=== PATIENT | female | born 1935 | race Caucasian/White ===

== ENCOUNTER → 2020-04-24 | Outpatient (CLI) | payer MEDICARE ==
[~2020-04-24] MED LIST: AZIT250 PO; Halcion0.25 MG PO; K-Dur10 MEQ; LEVO750 PO; METO100ER PO; METOPROLOL SUCC25 MG PO; SPIRONOLACTONE25 MG PO; Simvastatin40 MG PO; TORSE20 PO
[2020-04-24 14:11] LABS: BASOPHILS ABSOLUTE AUTO 0.02 K/mm3 (0.00-0.23); BASOPHILS PERCENT AUTO 0 % (0-2); EOSINOPHILS ABSOLUTE AUTO 0.05 K/mm3 (0.00-0.68); EOSINOPHILS PERCENT AUTO 1 % (0-6); Hemoglobin 12.4 g/dL (11.5-16.0); IMMATURE GRAN ABSOLUTE AUTO 0.02 K/mm3 (0.00-0.10); IMMATURE GRAN PERCENT AUTO 0 % (0-1); LYMPHOCYTES ABSOLUTE AUTO 0.71 K/mm3 (0.84-5.20); LYMPHOCYTES PERCENT AUTO 9 % (21-46); MONOCYTES ABSOLUTE AUTO 0.43 K/mm3 (0.16-1.47); MONOCYTES PERCENT AUTO 5 % (4-13); Mean Corpuscular HGB 32.2 pg (26.0-34.0); Mean Corpuscular HGB Conc 33.5 g/dL (31.5-36.5); Mean Corpuscular Volume 96 fL (80-100); Mean Platelet Volume 11.6 fL (9.1-12.4); NEUTROPHILS ABSOLUTE AUTO 7.14 K/mm3 (1.96-9.15); NEUTROPHILS PERCENT AUTO 85 % (41-73); Platelet Count 181 K/mm3 (150-400); RDW Coefficient Variation 15.7 % (11.7-14.2); RDW Standard Deviation 53.8 fL (35.1-46.3); Red Blood Cell Count 3.85 M/mm3 (3.80-5.20); White Blood Cell Count 8.37 K/mm3 (4.00-11.30)
[2020-04-24 14:21] LABS: Alanine Aminotransfer (ALT/SGP 21 U/L (12-78); Albumin/Globulin Ratio 0.9 (0.8-1.8); Alk Phos 74 U/L (40-126); Anion Gap 5 mmol/L (6-16); Aspartate Aminotrans (AST/SGOT 25 U/L (12-37); Blood Urea Nitrogen 18 mg/dL (8-24); Bun/Creatinine Ratio 22.5 (12.0-20.0); CO2, Blood 32 mmol/L (21-32); Calcium, Blood 8.8 mg/dL (8.5-10.1); Chloride, Blood 107 mmol/L (98-108); Globulin, Blood 3.2 g/dL (2.2-4.0); Glomerular Filtration Rate >60 (60-); Glucose, Blood 110 mg/dL (70-99); Potassium, Blood 3.3 mmol/L (3.5-5.5); Sodium, Blood 144 mmol/L (136-145); Total Protein, Blood 6.2 g/dL (6.4-8.2)
[2020-04-24 14:55] LABS: Troponin I 0.046 ng/mL (0.000-0.040)
== END | disposition home or self-care (01) ==
LOC: LAB SHORT 14:07 → LAB EV 14:07
PROVIDERS: Physician Assistant Medical
DX: R06.00 Dyspnea, unspecified (principal); R60.9 Edema, unspecified
CPT/HCPCS: 80053; 83880; 84484; 85025

== ENCOUNTER 2020-04-29 07:24 | Inpatient (IN) | payer MEDICARE ==
[~2020-04-29] VITALS: Ht 152.4 cm; Wt 69.1 kg
[2020-04-29 07:57] LABS: Hematocrit 44.9 % (33.0-51.0); Mean Corpuscular HGB 31.8 pg (26.0-34.0); Mean Corpuscular HGB Conc 33.4 g/dL (31.5-36.5); Mean Corpuscular Volume 95 fL (80-100); Mean Platelet Volume 12.5 fL (9.1-12.4); Platelet Count 180 K/mm3 (150-400); RDW Coefficient Variation 15.2 % (11.7-14.2); RDW Standard Deviation 53.1 fL (35.1-46.3); Red Blood Cell Count 4.71 M/mm3 (3.80-5.20); White Blood Cell Count 15.24 K/mm3 (4.00-11.30)
[2020-04-29 08:25] LABS: Albumin, Blood 2.2 g/dL (3.4-5.0); Albumin/Globulin Ratio 0.6 (0.8-1.8); BAND PERCENT MAN 10 % (0-8); BASOPHILS PERCENT MAN 0 % (0-2); Bilirubin, Total 1.6 mg/dL (0.1-1.0); Calcium, Blood 9.4 mg/dL (8.5-10.1); Creatinine, Blood 1.77 mg/dL (0.40-1.00); EOSINOPHILS PERCENT MAN 0 % (0-6); Globulin, Blood 3.5 g/dL (2.2-4.0); LYMPHOCYTES ABSOLUTE MAN 0.45 K/mm3 (0.84-5.20); LYMPHOCYTES PERCENT MAN 3 % (21-46); MONOCYTES PERCENT MAN 2 % (4-13); NEUTROPHILS ABSOLUTE MAN 14.47 K/mm3 (1.96-9.15); Potassium, Blood 3.8 mmol/L (3.5-5.5); SEG NEUTROPHILS PERCENT MAN 85 % (41-73); TOTAL CELLS COUNTED 100; Total Protein, Blood 5.7 g/dL (6.4-8.2)
[2020-04-29 08:43] LABS: Source, Urine Catheter
[2020-04-29 08:51] LABS: Blood, Urine 3+ (Neg); Glucose Qualitative, Urine 1+ (Neg); Ketones, Urine Neg (Neg); Leukocyte Esterase, Urine 1+ (Neg); Nitrite, Urine Neg (Neg); Protein, Urine 2+ (Neg); Specific Gravity, Urine 1.015 (1.003-1.022); Urobilinogen, Urine 1+ (Normal)
[2020-04-29 09:02] LABS: Bilirubin, Urine 1+ (Neg)
[2020-04-29 09:04] LABS: Color, Urine Yellow (P-Yellow)
[2020-04-29 09:05] LABS: Appearance, Urine Hazy (Clear)
[2020-04-29 09:14] LABS: Bacteria Few /hpf; Squamous Epithelial Cells Rare /hpf (Few)
[2020-04-29 09:15] LABS: Amorphous Mod (0-Heavy); Transitional Epithelial Cells Few /hpf (0-Rare)
[2020-04-29 09:20] LABS: Other Crystals Rare /hpf
[2020-04-29 09:22] LABS: Renal Epithelial Rare /hpf (0-Rare)
--- NOTE | 2020-04-29 10:52 | NUR ---
PT TRANSPORTED TO [facility]. PT AWAKE, SLOW TO RESPOND BUT ANSWERS APPROPRIATLY.
--- NOTE | 2020-04-29 11:19 | NUR ---
TOOK OVER PATIENT CARE AFTER REPORT WAS RECEIVED. PATIENT'S LUNGS SOUNDS WERE CLEAR, BUT SALLOW.
--- NOTE | 2020-04-29 18:23 | NUR ---
SHIFT SUMMARY PT ARRIVED TO ICU AT 1450 THIS AFTERNOON FROM PACU. PT DROWSY, WAKES TO VOICE, BUT FALLS QUICKLY BACK ASLEEP AND MOSTLY JUST RESPONDS TO QUESTIONS WHILE KEEPING HER EYES CLOSED. PT HAS SORE ON HER BOTTOM WITH 2 SMALL OPEN AREAS. MEPILEX DRESSING PLACED. PT'S BP HAS BEEN BORDERLINE WITH SBP 80-90 AND MAP 50-60S. DR. BOUCHER INFORMED AND ORDER RECEIVED FOR 1LNS. PT'S BP STILL BORDERLINE AFTER BOLUS. DR. DIALLO CONSULTED AND SAW PT. ORDERS FOR PICC LINE, BEING PLACED NOW, AND PRESSORS IF BP CONTINUES TO BE AN ISSUE. PT'S DANNIELLE AT THE BEDSIDE AND WAS UPDATED BY DR. BOUCHER, DR. DIALLO AND NURSING STAFF. PT'S MIDLINE INCISION IS C/D/I WITH SMALL NICKEL SIZE SPOT OF RED DRAINAGE. ALENA DRAIN WITH SS DRAINAGE. CPMTOMIOMG TP ,PMOTPR/
--- NOTE | 2020-04-29 20:00 | NUR ---
ASSUMED CARE: PT SLEEPING. LUNG SOUNDS CLEAR ON 3L NC. SBP SOFT AT TTIMES.POSS HEART FAILURE THEREFORE LR AT 100MLS/HR DC'S. IN SR. NGT TO STUART. POTTER IN PLACE DRAINING YELLOW URINE. PT HAS A MIDLINE ABD INCISION WITH NATHAN DRESSING AND WOUND VAC. PT ALSO HAS LEIDY DRAIN DRAINING YELLOW FLUID. PT HAS A L/R AC AND PICC TO MONICA. WILL CONTINUE TO MONITOR
[2020-04-30 04:17] LABS: Hematocrit 39.9 % (33.0-51.0); Hemoglobin 13.2 g/dL (11.5-16.0); Mean Corpuscular HGB 32.4 pg (26.0-34.0); Mean Corpuscular HGB Conc 33.1 g/dL (31.5-36.5); Mean Corpuscular Volume 98 fL (80-100); Mean Platelet Volume 12.6 fL (9.1-12.4); Platelet Count 179 K/mm3 (150-400); RDW Coefficient Variation 15.6 % (11.7-14.2); RDW Standard Deviation 55.8 fL (35.1-46.3); Red Blood Cell Count 4.07 M/mm3 (3.80-5.20); White Blood Cell Count 13.83 K/mm3 (4.00-11.30)
[2020-04-30 04:34] LABS: Albumin, Blood 1.8 g/dL (3.4-5.0); Albumin/Globulin Ratio 0.6 (0.8-1.8); Bilirubin, Total 0.9 mg/dL (0.1-1.0); Bun/Creatinine Ratio 36.2 (12.0-20.0); Creatinine, Blood 1.3 mg/dL (0.40-1.00); Globulin, Blood 3.2 g/dL (2.2-4.0); Potassium, Blood 3.3 mmol/L (3.5-5.5)
--- NOTE | 2020-04-30 05:46 | NUR ---
SHIFT SUMMARY: PT SLEPT MAJORITY OF THE NIGHT. LEVOPHED WAS STARTED D/T PT SBP IN THE 70-80. SBP CURRENTLY IN THE 110S. PT HAD A COUPLE EPISODES OF DESAT SO O2 WAS TURNED UP TO 4L NC.SPO2 98%. OTHERWISE NO ACUTE CHANGES.
[2020-04-30 05:48] LABS: BAND PERCENT MAN 14 % (0-8); BASOPHILS ABSOLUTE MAN 0.13 K/mm3 (0.00-0.23); BASOPHILS PERCENT MAN 1 % (0-2); EOSINOPHILS PERCENT MAN 0 % (0-6); LYMPHOCYTES ABSOLUTE MAN 0.41 K/mm3 (0.84-5.20); LYMPHOCYTES PERCENT MAN 3 % (21-46); MONOCYTES ABSOLUTE MAN 0.55 K/mm3 (0.16-1.47); MONOCYTES PERCENT MAN 4 % (4-13); NEUTROPHILS ABSOLUTE MAN 12.72 K/mm3 (1.96-9.15); SEG NEUTROPHILS PERCENT MAN 78 % (41-73); TOTAL CELLS COUNTED 100
--- NOTE | 2020-04-30 08:17 | NUR ---
ASSUMED CARE: REPORT RECEIVED FROM STEPHANE Land RN. ASSUMED CARE OF THIS PT AT APPROX 0700. ON ASSESSMENT, PT IS RESTING QUIETLY. SHE AWAKENS TO VERBAL STIMULUS & STS HAVING NO PAIN. LEVOPHED INFUSING FOR HYPOTENSION, TITRATION IN FLOWSHEET. MIDLINE INCISION W/ NATHAN WOUND VAC, DRESSING CDI. RLQ ALENA DRAIN W/ GAUZE DRESSING INTACT, DRAINING YELLOW/ SS FLUID. WILL CONTINUE TO MONITOR & UPDATE NEEDED.
--- NOTE | 2020-04-30 10:49 | NUR ---
DR SYLVESTER: PROVIDER AT BEDSIDE APPROX 1035. HE HAS ASSESSED THE PT & STS THAT THE YELLOW/ SS DRAINAGE IN THE ALENA DRAIN IS WNL. CURRENT POC IS TO CONTINUE W/ NGT IN PLACE TO LIS, ALENA & NATHAN DRAINS TO STAY IN PLACE. ONCE PT IS MORE STABLE A WHOLE & OFF OF VASOPRESSORS, AN UPPER GI STUDY MAY BE COMPLETED TO EVAL IF SURGICAL REPAIR OF PERF REMAINS STABLE. NO CHANGES AT THIS TIME.
--- NOTE | 2020-04-30 12:00 | NUR ---
DR BOUCHER: PROVIDER AT BEDSIDE TO EVAL PT. HE STS NO CHANGES AT THIS TIME & CONTINUE POC PER SURGERY & HAND NAILER SERVICES CONSULTED.
--- NOTE | 2020-04-30 16:20 | NUR ---
DR BLOOM: PROVIDER AT BEDSIDE TO EVAL PT. ORDERS PLACED FOR 500 ML LR BOLUS TO SEE IF BP & URINE OUTPUT INCREASE/IMPROVE. BASED ON PT's KIND OF HF, LEVOPHED MAY BE COUNTERPRODUCTIVE & PHENYLEPHRINE HAS BEEN ORDERED INSTEAD.
--- NOTE | 2020-04-30 18:55 | NUR ---
SHIFT SUMMARY: NO ACUTE CHANGES SINCE PRIOR UPDATES. PT REMAINS A&O, PLEASANT & COOPERATIVE. SHE DENIES PAIN EXCEPT DIRECTLY AFTER TRANSFER TO CHAIR, MEDS PER EMAR. SHE IS RESTING QUIETLY AT THIS TIME. ASSESSMENT UNCHANGED. PT REMAINS ON 4L NC FOR DESATS WHILE SLEEPING, SATS > 92% ON AVG. PT IS TOLERATING BEING OFF WELL, MAP 60-65 ON AVG. PHENYLEPHRINE IN ROOM IF NEEDED FOR HYPOTENSION. Q2H REPOSITIONING TO MAINTAIN SKIN INTEGRITY. ALL SURGICAL SITES & DRESSINGS REMAIN WNL. WILL CONTINUE TO MONITOR & REPORT OFF TO ONCOMING RN.
--- NOTE | 2020-04-30 19:53 | NUR ---
ASSUMED CARE: PT ASLEEP IN CHAIR. IN SR. LUNG SOUDNS CLEAR, SPO2 >90% ON 4LNC. NGT IN PLACE TO LIS. NATHAN DRESSING C/D/I. LEIDY DRAINING OUTPUT IS A YELLOWISH COLOR. PICC TO MONICA. PIVS REMAIN IN R/L AC-PATENT/SL. LEVOPHEDD/C'D, PHENYLEPHRINE ON STANDBY IF NEEDED. SBP'S ARE SOFT BUT MAPS HAVE >60. NS AT TKO.
[2020-05-01 03:28] LABS: BASOPHILS ABSOLUTE AUTO 0.02 K/mm3 (0.00-0.23); BASOPHILS PERCENT AUTO 0 % (0-2); EOSINOPHILS ABSOLUTE AUTO 0.01 K/mm3 (0.00-0.68); EOSINOPHILS PERCENT AUTO 0 % (0-6); Hematocrit 40.3 % (33.0-51.0); Hemoglobin 12.4 g/dL (11.5-16.0); IMMATURE GRAN ABSOLUTE AUTO 0.09 K/mm3 (0.00-0.10); IMMATURE GRAN PERCENT AUTO 1 % (0-1); LYMPHOCYTES ABSOLUTE AUTO 0.58 K/mm3 (0.84-5.20); LYMPHOCYTES PERCENT AUTO 5 % (21-46); MONOCYTES ABSOLUTE AUTO 0.53 K/mm3 (0.16-1.47); MONOCYTES PERCENT AUTO 5 % (4-13); Mean Corpuscular HGB 30.5 pg (26.0-34.0); Mean Corpuscular HGB Conc 30.8 g/dL (31.5-36.5); Mean Corpuscular Volume 99 fL (80-100); Mean Platelet Volume 11.8 fL (9.1-12.4); NEUTROPHILS ABSOLUTE AUTO 10.47 K/mm3 (1.96-9.15); NEUTROPHILS PERCENT AUTO 89 % (41-73); Platelet Count 118 K/mm3 (150-400); RDW Coefficient Variation 15.5 % (11.7-14.2); RDW Standard Deviation 56.9 fL (35.1-46.3); Red Blood Cell Count 4.07 M/mm3 (3.80-5.20)
[2020-05-01 03:45] LABS: Albumin, Blood 1.9 g/dL (3.4-5.0); Albumin/Globulin Ratio 0.6 (0.8-1.8); Bilirubin, Total 0.7 mg/dL (0.1-1.0); Bun/Creatinine Ratio 40.8 (12.0-20.0); Calcium, Blood 8.3 mg/dL (8.5-10.1); Creatinine, Blood 1.03 mg/dL (0.40-1.00); Globulin, Blood 3.3 g/dL (2.2-4.0); Magnesium, Blood 2.2 mg/dL (1.6-2.4); Potassium, Blood 3.4 mmol/L (3.5-5.5); Total Protein, Blood 5.2 g/dL (6.4-8.2)
--- NOTE | 2020-05-01 05:49 | NUR ---
SHIFT SUMMARY: NO ACUTE CHANGES T/O NIGHT. PT DID COMPLAIN OF PAIN. VSS. NO PRESSERS NEEDED. WILL PASS REPORT TO ONCOMING
--- NOTE | 2020-05-01 12:55 | NUR ---
REASSESSMENT PT HAS BEEN CONVERSING A LITTLE MORE THAN SHE INTIALLY WAS THIS MORNING. SHE KNOWS SHE IS IN THE HOSPITAL BUT CAN'T GIVE SPECIFICS TO WHERE OR WHY. SHE COMPLAINS OF PAIN ALL OVER AND SAYS THE FENTANYL ONLY GIVES A LITTLE RELIEF. LUNGS ARE CLEAR, BUT DIM. ENCOURAGING PT TO TAKE DEEPER BREATHS BUT SHE DOESN'T REMEMBER TO DO IT ONCE THERE ISN'T ANYONE IN THE ROOM. SR, BP STABLE, OFF OF PRESSORS. DR. SYLVESTER CAME BY AND OK'D PT TO HAVE PO METOPROLOL THROUGH THE NGT AND TO START SQ HEPARIN. RARE BOWEL TONES HEARD THIS AFTERNOON. NG GETTING SCANT AMT OF BILE LOOKING FLUID OUT. PT'S DANNIELLE CALLED AND PROVIDED WITH UPDATE. PT'S SON AT THE BEDSIDE. CONTINUING TO MONITOR.
--- NOTE | 2020-05-01 17:23 | NUR ---
SHIFT SUMMARY PT HAS BEEN RESTING ON AND OFF THROUGHOUT THE DAY. SHE WAS MORE INTERACTIVE AFTER GETTING UP TO THE CHAIR THIS MORNING, BUT HAS BEEN QUIETER AND MORE WITHDRAWN THIS EVENING. ATTEMPTED TO HAVE PT JUST DANGLE AT THE EDGE OF THE CHAIR BEFORE GETTING BACK TO BED BUT PT REFUSED. LUNGS ARE CLEAR, BREATHS ARE STILL SHALLOW. SR, BP STABLE. AFEBRILE. SEROUS FLUID OUT OF ALENA DRAIN. MIDLINE DRG C/D/I. POTTER DRAINING CL YELLOW URINE. CONTINUING TO MONITOR.
--- NOTE | 2020-05-01 20:00 | NUR ---
ASSUMED CARE: PT AWAKE. A&O ONLY PLACE. IN SR. SBP 110S. LUNG SOUNDS CLEAR ON 3-4LNC. ABD NATHAN DRESSING UNCHANGED. LEIDY DRAIN STILL IN PLACE WITH SEROUS OUTPUT. NORMOACTIVE BT. ABD IS DISTENDED AND FIRM. PT COMPLAINS FREQUENTLY OF GENERALIZED PAIN T/O BODY. MEPILEX ON COCCYX. SKIN IS FRAGILE. POTTER IN PLACE WITH SMALL AMT OF OUTPUT. PICC TO MONICA AND PIV TO LAC. NS TKO INFUSING THROUGH PICC. WILL CONTINUE TO MONITOR
--- NOTE | 2020-05-02 02:49 | NUR ---
CARE ASSUMED REPORT RECEIVED, CARE ASSUMED AT THIS TIME. REPORT FROM EVELIN CALDERÓN. PT RESTING IN BED, AROUSES EASILY FOR ASSESSMENT, BUT REPEATEDLY SAYS, "OWE, OWE, OWE." PT UNABLE TO ARTICULATE DETAILS OF PAIN. NOT FOLLOWING ANY COMMANDS OR ANSWERING ORIENTATION QUESTIONS. QUICKLY FALLS ASLEEP WHEN NOT STIMULATED. VITALS STABLE. SEE FLOWSHEET. SEE SHIFT ASSESSMENT.
--- NOTE | 2020-05-02 03:07 | NUR ---
UPDATE SINCE PREVIOUS NOTE, PT MOANING OUT IN PAIN, AUDIBLE FROM NURSES STATION. PT REPORTS HAVING PAIN BUT UNABLE TO ARTICULATE LOCATION OR INTENSITY. HOWEVER, PT CONSISTENTLY MOANING OUT IN PAIN. PT ABLE TO STATE NAME AND LOCATION. FOLLOWS SIMPLE COMMANDS. TRACKING WITH EYES. MEDICATED WITH DILAUDID PER ORDERS.
[2020-05-02 04:49] LABS: BASOPHILS ABSOLUTE AUTO 0.01 K/mm3 (0.00-0.23); BASOPHILS PERCENT AUTO 0 % (0-2); EOSINOPHILS PERCENT AUTO 0 % (0-6); Hematocrit 39.1 % (33.0-51.0); Hemoglobin 12.1 g/dL (11.5-16.0); IMMATURE GRAN ABSOLUTE AUTO 0.12 K/mm3 (0.00-0.10); IMMATURE GRAN PERCENT AUTO 1 % (0-1); LYMPHOCYTES ABSOLUTE AUTO 0.52 K/mm3 (0.84-5.20); LYMPHOCYTES PERCENT AUTO 5 % (21-46); MONOCYTES ABSOLUTE AUTO 0.57 K/mm3 (0.16-1.47); MONOCYTES PERCENT AUTO 6 % (4-13); Mean Corpuscular HGB 30.5 pg (26.0-34.0); Mean Corpuscular HGB Conc 30.9 g/dL (31.5-36.5); Mean Corpuscular Volume 99 fL (80-100); Mean Platelet Volume 12.1 fL (9.1-12.4); NEUTROPHILS ABSOLUTE AUTO 8.75 K/mm3 (1.96-9.15); NEUTROPHILS PERCENT AUTO 88 % (41-73); Platelet Count 127 K/mm3 (150-400); RDW Coefficient Variation 15.4 % (11.7-14.2); RDW Standard Deviation 56.2 fL (35.1-46.3); Red Blood Cell Count 3.97 M/mm3 (3.80-5.20); White Blood Cell Count 9.97 K/mm3 (4.00-11.30)
[2020-05-02 05:24] LABS: Anion Gap 9 mmol/L (6-16); Blood Urea Nitrogen 37 mg/dL (8-24); Bun/Creatinine Ratio 40.6 (12.0-20.0); CO2, Blood 30 mmol/L (21-32); Calcium, Blood 8.9 mg/dL (8.5-10.1); Chloride, Blood 110 mmol/L (98-108); Creatinine, Blood 0.91 mg/dL (0.40-1.00); Glomerular Filtration Rate >60 (60-); Glucose, Blood 87 mg/dL (70-99); Potassium, Blood 3.3 mmol/L (3.5-5.5); Sodium, Blood 149 mmol/L (136-145)
--- NOTE | 2020-05-02 06:44 | NUR ---
UPDATE SINCE PREVIOUS NOTE, PT HAS BEEN MEDICATED ONE MORE TIME WITH DAULIDID DUE TO NONVERBAL AND VERBAL INDICATORS OF PAIN. WHEN REPOSITIONING, PT EXTREMELY SLEEPY AND DOES NOT MENTION PAIN OR CRY OUT WITH REPOSITIONING. PT OPENS EYES, LOOKS AROUND. WHEN ASKED IF SHE IS DOING OK, PT SAYS, "YES," IN A CLEAR VOICE, BUT OTHERWISE MINIMALLY INTERACTIVE. PT FALLS ASLEEP QUICKLY AFTER INTERACTIONS. VITALS STABLE. WOUND SITE CONTINUES TO BE C/D/I. SEE I/O FLOWSHEET FOR OUTPUT FROM LEIDY NICK, AND TARIQ.
--- NOTE | 2020-05-02 12:27 | NUR ---
REASSESSMENT PT WAS MORE CONFUSED AT THE START OF SHIFT WITH MINIMAL RESPONSES TO VOICE, YELLING OUT THAT SHE WAS HURTING OR DYING. PT GIVEN FENTANYL FOR PAIN BUT SHE CONTINUED TO YELL OUT SHE WAS HURTING. PAIN MEDICINE WORE OFF PT BECAME MORE ALERT AND INTERACTIVE WITH STAFF. PT WAS ABLE TO DANGLE AT THE BEDSIDE, WITH A LOT OF ASSISTANCE FROM STAFF, AND AFTERWARDS PT STATED THAT SHE FELT BETTER. BATHED PT AND GOT HER UP TO CHAIR. DISCUSSED WITH DR. BOUCHER AND PT'S FAMILY ABOUT REDUCING PAIN MEDICATION TO TRY AND HELP IMPROVE MENTATION AND PT'S MOBILITY TO HELP HER HEAL AND ALL WERE IN AGREEMENT. DISCUSSED THIS WITH PT AT WELL AND SHE SAYS SHE UNDERSTANDS, BUT SHE ISN'T RETAINING INFORMATION. PT'S LUNGS ARE CLEAR, 4L/NC, SR AFTER BEING ST IN THE 1TEENS THIS MORNING. BP STABLE. SEROUS DRAINAGE FROM ALENA DRAIN, MIDLINE INCISION C/D/I. CONTINUING TO MONITOR.
--- NOTE | 2020-05-02 17:11 | NUR ---
SHIFT SUMMARY PT HAS CONTINUED TO BE MORE ALERT AND INTERACTIVE THIS AFTERNOON. PT CONTINUES TO COMPLAIN OF PAIN FREQUENTLY REGARDLESS OF WHETHER OR NOT SHE JUST GOT PAIN MEDICATION. HELPING PT MOVE HER EXTREMITIES AND REPOSITIONING HAVE WORKED WELL IN BETWEEN DOSES OF PAIN MEDICATION TO HELP CONTROL IT. PT DANGLES AT THE EDGE OF THE CHAIR AGAIN THIS AFTERNOON. SHE STILL FORGETS WHERE SHE IS, BUT IS ORIENTED TO EHRSELF AND HER FAMILY. LUNGS ARE CLEAR, BUT DIM. SHE IS TAKING DEEP BREATHS WHEN TOLD AND CAN PRODUCE A WEAK COUGH ON COMMAND. SHE ISR IN THE 90S, BP REMAINS STABLE. NG WITH SCANT AMT OF BILE LOOKING FLUID OUT. ALENA DRAIN WITH SEROUS OTUPUT. NATHAN DERSSING REMAINS C/D/I. CLINIMIX STARTED THIS AFTERNOON. PT'S DANNIELLE WAS IN THIS AFTERNOON AND WAS UPDATED. CONTINUING TO MONITOR.
--- NOTE | 2020-05-02 21:12 | NUR ---
CARE ASSUMED REPORT RECEIVED, CARE ASSUMED AT 1900 FROM EVELIN NASCIMENTO. PT AWAKE IN BED, REPEATEDLY YELLING OUT FOR WATER. PT EDUCATED ON CIRCUMSTANCES REPEATEDLY, AND IS SOMEWHAT REDIRECTABLE, HOWEVER FORGETS QUICKLY AND BEGINS YELLING OUT FOR WATER OVER AND OVER AGAIN REPEATEDLY. PT DOES ASK A FEW QUESTIONS, BUT IS STRUGGLING TO RETAIN INFORMATION. PT ORIENTED EXCEPT FOR CIRCUMSTANCES OF HOSPITALIZATION AND DATE/TIME. FOLLOWING SOME DIRECTIONS, BUT EXTREMELY WEAK. PT MENTIONS PAIN ONCE, BUT OTHERWISE IS CONCERNED WITH THE NEED FOR WATER. ORAL CARE AND SUCTION SWABS PROVIDED. 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 SEE FULL ASSESSMENTS. PT ASSISTED TO CHANGE CHANNEL TO MUSIC PER REQUEST. PT LEFT WITH CALL LIGHT IN LEFT HAND.
[2020-05-03 05:02] LABS: BASOPHILS ABSOLUTE AUTO 0.01 K/mm3 (0.00-0.23); BASOPHILS PERCENT AUTO 0 % (0-2); EOSINOPHILS ABSOLUTE AUTO 0.01 K/mm3 (0.00-0.68); EOSINOPHILS PERCENT AUTO 0 % (0-6); Hematocrit 37.3 % (33.0-51.0); Hemoglobin 11.9 g/dL (11.5-16.0); IMMATURE GRAN ABSOLUTE AUTO 0.06 K/mm3 (0.00-0.10); IMMATURE GRAN PERCENT AUTO 1 % (0-1); LYMPHOCYTES ABSOLUTE AUTO 0.55 K/mm3 (0.84-5.20); LYMPHOCYTES PERCENT AUTO 6 % (21-46); MONOCYTES ABSOLUTE AUTO 0.88 K/mm3 (0.16-1.47); MONOCYTES PERCENT AUTO 9 % (4-13); Mean Corpuscular HGB 32.1 pg (26.0-34.0); Mean Corpuscular HGB Conc 31.9 g/dL (31.5-36.5); Mean Corpuscular Volume 101 fL (80-100); Mean Platelet Volume 12.5 fL (9.1-12.4); NEUTROPHILS ABSOLUTE AUTO 7.97 K/mm3 (1.96-9.15); NEUTROPHILS PERCENT AUTO 84 % (41-73); Platelet Count 139 K/mm3 (150-400); RDW Coefficient Variation 15.2 % (11.7-14.2); RDW Standard Deviation 55.3 fL (35.1-46.3); Red Blood Cell Count 3.71 M/mm3 (3.80-5.20); White Blood Cell Count 9.48 K/mm3 (4.00-11.30)
[2020-05-03 05:21] LABS: Alanine Aminotransfer (ALT/SGP 17 U/L (12-78); Albumin/Globulin Ratio 0.7 (0.8-1.8); Alk Phos 53 U/L (50-136); Anion Gap 2 mmol/L (6-16); Aspartate Aminotrans (AST/SGOT 26 U/L (12-37); Bilirubin, Total 0.6 mg/dL (0.1-1.0); Blood Urea Nitrogen 34 mg/dL (8-24); Bun/Creatinine Ratio 42.6 (12.0-20.0); CO2, Blood 36 mmol/L (21-32); Chloride, Blood 112 mmol/L (98-108); Glomerular Filtration Rate >60 (60-); Glucose, Blood 139 mg/dL (70-99); Potassium, Blood 3.5 mmol/L (3.5-5.5); Sodium, Blood 150 mmol/L (136-145)
--- NOTE | 2020-05-03 06:21 | NUR ---
SUMMARY PT HAS CONTINUED TO BE ORIENTED TO SELF AND LOCATION. PT HAS BEEN AWAKE THE ENTIRE NIGHT, FIXATED ON AND REPEATEDLY STATING, "WATER." PT DOES ANSWER SOME QUESTIONS AND FOLLOW SOME DIRECTIONS, BUT DOES NOT RETAIN EDUCATION REPEATS SAME QUESTIONS AND WORDS. MEDICATED WITH FENTANYL PER EMAR, AND PT DOES NOT COMPLAIN OF PAIN UNLESS ASKED, BUT SHOWS NONVERBAL SIGNS. PT EXTREMELY WEAK, NOT PARTICIPATING IN ADL'S BEYOND SQUEEZING OF HANDS AND WIGGLING OF TOES. PT ASSISTED TO DO ROM, AND DURING ROM, PT WAS COUNTING NUMBER OF REPS. AT PREVIOUS TIMES IN THE NIGHT, PT WAS COUNTING BY HERSELF IN HER ROOM, AND WHEN PROMPTED, PT SIMPLY STATES, "I'M ." PT'S VITALS STABLE, WITH EXCEPTION OF ELEVATING RESPIRATORY RATE AND A MILD FEVER. PT HAS INCREASED WORK OF BREATHING THIS MORNING, BUT LUNGS REMAIN CLEAR/DIM/TIGHT. MIDLY INCREASED SWELLING NOTED ON ARMS AND LEGS. CONTINUES TO BE ON 50 ML/HR CLINIMIX. 02 SAT CONTINUES TO BE 90'S ON 4 LPM NASAL CANNULA. NO BM THIS SHIFT. DECREASED URINE OUTPUT. SEE REPEAT ASSESSMENTS AND FLOWSHEETS.
--- NOTE | 2020-05-03 07:15 | NUR ---
Assumed care of pt at 0700. Bedside report received from Ceci WATERS. Pt responsive to verbal stimulus. Pt confused, slow to respond. Answers some questions. Follows some commands. Pt on 3 LPM NC. SpO2 90% or greater. Pt tachypnic, RR 30s. Tachycardic with HR in low 100s. Pt has NG tube to low intermittent suction with a small amount of bilious drainage. LEIDY drain to RLQ with serous drainage. Emptied with offgoing RN and already starting to fill again. Montero catheter in place for strict measurement of fluid intake and output. Bed in lowest position.
--- NOTE | 2020-05-03 07:43 | NUR ---
Dr Teague in to see pt. Discussed pt's confusion and pain medications. Discussed tachypnea/tachycaria. RR 30s. HR low 100s. Dicussed pt's I&O throughout hospitalization. Provider states to hold clinimix for now. Provider would like patient to have 2 mg morphine IV now. Provider would like chest xray. Provider at bedside doing point of care ultrasound on lungs would like pt to have 20 mg furosemide as pt's lungs appear fluid overloaded. Discussed pt's septal hypertrophy and provider states 20 mg furosemide is a safe choice for this patient.
--- NOTE | 2020-05-03 09:15 | NUR ---
Cloudy yellow drainage emptied from LEIDY. Dr Trivedi in to see pt. Notified provider that drainage was cloudy. Sample available for provider to review. Reviewed pt's labs. Pt does not have high WBC count. Plan to proceed with UGI series.
--- NOTE | 2020-05-03 09:29 | NUR ---
Per Dr Teague, pt can be PCU status and does not require nurse assist for trip down to imaging department.
--- NOTE | 2020-05-03 11:00 | NUR ---
Pt up to recliner from bed using ceiling lift. Pt tolerated well. Passive during transfer. Pt's son at bedside, visiting. Update given to son.
--- NOTE | 2020-05-03 16:00 | NUR ---
Call placed to Dr Teague to discuss pt's condition. Pt is still tachypnic, but respirations are even and unlabored. Discussed urine output from lasix. No new orders at this time.
--- NOTE | 2020-05-03 17:06 | NUR ---
Initial spiritual care note: I met with Mrs. Metz this morning. No family was present. She opens eyes to voice and can answer 'yes' or 'no' to questions. However, she did not appear to understand questions/comments--saying 'yes' to everything. Later, I met with son, Wesley, at bedside. He tells me that pt has been doing well up until this hospitalization. According to RN, other family memebers have said she has been on the decline. Regardless, I provided affirmation of love, encouraged self-care, and addressed code status. Wesley says he has to talk to his siblings about this and will report back tomorrow. Family is hoping their mom can return to independant living. Not sure this is realistic. Non-pentecostal. I prayed at bedside for pt this morning. I will remain available.
--- NOTE | 2020-05-03 18:40 | NUR ---
Pt has been somnolent for entire shift. Worked with pt to cough and deep breathe, however pt was not able to follow these directions. Pt can answer questions and follow commands, however it is rare. Pt up in chair for majority of day. Slept in chair. Repositioning continued Q2H while pt in recliner. Pt on 2 LPM NC at this time. Excellent urine output from weir. HR improved after receiving morphine and lasix. No additional pain meds given this shift as pt has not reported pain, nor has she shown signs of pain/discomfort. Pt's sons in to see pt intermittently throughout the day. Telephone update given to pt's daughter when she called the unit. Will continue to closely monitor until care handoff and bedside report with oncoming RN.
--- NOTE | 2020-05-03 19:15 | NUR ---
ASSUMED CARE OF PT, BEDSIDE REPORT RECEIVED. PT IS RESTING QUIETLY AND RECLINING IN BED, DOES NOT ANSWER QUESTIONS HOWEVER DOES FOLLOW INSTRUCTIONS REGARDING ANTIQUE COLLECTOR BILAT AND OPENING MOUTH FOR VISUAL INSPECTION. OPENS EYES TO SPOKEN NAME. NO GRIMACING OR RESTLESSNESS IS NOTED AT THIS TIME, WILL MONITIOR FOR C/O PAIN. HRR, SINUS ON MONITOR, RATE 80S AT THIS TIME, PRESSURES MAINTAINING, PT WAS GENTLY DIURESED PER DAY SHIFT RN, EDEMA TO EXTREMITIES CONTINUES, CAP REFILL IS BRISK, PULSES PRESENT X 4. LUNGS ARE CLEAR BUT DIM THROUGHOUT, PROLONGED EXPIRATORY PHASE IS NOTED, NO ACCESSORY USAGE, NO VISIBLE INCREASED WORK OF BREATHING AT THIS TIME, SATS MAINTAINING LOW 90S WITH OXYGEN VIA NASAL CANNULA AT 2.5 L/MIN. ABD MODERATELY DISTENDED, NG IN PLACE TO LEFT NARE, LOW INTERMITTENT SUCTION PRODUCTIVE OF DARK GREEN BROWN FLUID, ACTIVE BOWEL TONES X 4 QUADRANTS AT THIS TIME, NO GRIMACING WITH LIGHT PALPATION, ABD SOFT, MIDLINE WOUND VAC NATHAN DRESSING IN PLACE IS CDI AT THIS TIME, ALENA DRAIN TO RIGHT ABD DRAINING SEROUS FLUID, 70 ML EMPTIED FROM BULB DURING REPORT. BILAT MEPILEX HEEL PROTECTIVE DRESSINGS IN PLACE, CDI, HEELS ARE FLOATED OFF BED. DRESSING TO COCCYX IS CHICHO, CARLYN ROGERS.
[2020-05-04 03:48] LABS: BASOPHILS ABSOLUTE AUTO 0.01 K/mm3 (0.00-0.23); BASOPHILS PERCENT AUTO 0 % (0-2); EOSINOPHILS ABSOLUTE AUTO 0.02 K/mm3 (0.00-0.68); EOSINOPHILS PERCENT AUTO 0 % (0-6); Hematocrit 39.7 % (33.0-51.0); Hemoglobin 12.6 g/dL (11.5-16.0); IMMATURE GRAN ABSOLUTE AUTO 0.14 K/mm3 (0.00-0.10); IMMATURE GRAN PERCENT AUTO 2 % (0-1); LYMPHOCYTES ABSOLUTE AUTO 0.53 K/mm3 (0.84-5.20); LYMPHOCYTES PERCENT AUTO 6 % (21-46); MONOCYTES ABSOLUTE AUTO 0.82 K/mm3 (0.16-1.47); MONOCYTES PERCENT AUTO 9 % (4-13); Mean Corpuscular HGB Conc 31.7 g/dL (31.5-36.5); Mean Corpuscular Volume 101 fL (80-100); Mean Platelet Volume 11.9 fL (9.1-12.4); NEUTROPHILS ABSOLUTE AUTO 7.83 K/mm3 (1.96-9.15); NEUTROPHILS PERCENT AUTO 84 % (41-73); Platelet Count 139 K/mm3 (150-400); RDW Coefficient Variation 15.5 % (11.7-14.2); RDW Standard Deviation 55.8 fL (35.1-46.3); Red Blood Cell Count 3.94 M/mm3 (3.80-5.20); White Blood Cell Count 9.35 K/mm3 (4.00-11.30)
[2020-05-04 04:08] LABS: Anion Gap 3 mmol/L (6-16); Blood Urea Nitrogen 25 mg/dL (8-24); Bun/Creatinine Ratio 36.3 (12.0-20.0); CO2, Blood 40 mmol/L (21-32); Calcium, Blood 8.8 mg/dL (8.5-10.1); Chloride, Blood 111 mmol/L (98-108); Creatinine, Blood 0.69 mg/dL (0.40-1.00); Glomerular Filtration Rate >60 (60-); Glucose, Blood 109 mg/dL (70-99); Potassium, Blood 3.1 mmol/L (3.5-5.5); Sodium, Blood 154 mmol/L (136-145)
--- NOTE | 2020-05-04 05:30 | NUR ---
NG TUBE ON ENTRY TO ROOM, THIS RN NOTED PT HAS NG TUBE FULLY REMOVED FROM NARE AND COILED IN RIGHT HAND. DISCUSSED WITH CUTTER GRIND TOOL TECHNICIAN AND WILL NOTIFY SURGEON YARN SPINNER AT 0600.
--- NOTE | 2020-05-04 07:07 | NUR ---
PT RESTS QUIETLY THROUGHOUT SHIFT, NO C/O PAIN OR NAUSEA THROUGHOUT NOC, SHE DOES NOT ANSWER WITH LOCATION OR CIRCUMSTANCE WHEN ASKED, DOES FOLLOW COMMANDS TO SQUEEZE FINGERS BILAT AND OPEN MOUTH FOR INSPECTION OTHERWISE DOES NOT FOLLOW INSTRUCTIONS WELL. PT SELF DC'D NG TUBE AT 0530, DR COLLINS NOTIFIED AND ORDERS OBTAINED. TURNS EVERY 2 HOURS DUE TO SKIN BREAKDOWN RISK. CONTINUES WITH OXYGEN AT 2 L/MIN VIA NASAL CANNULA, PROLONGED EXPIRATORY PHASE CONTINUES, PT DOES NOT FOLLOW INSTRUCTIONS REGARDING TCDB, LUNGS CONT DIM BUT CLEAR THROUGHOUT, STRONG VOICE QUALITY AT TIMES THAT SHE YELLS OUT "I'M TOO HOT" OR "WATER." HRR, CONTINUES IN SINUS, PRESSURE REMAINS STABLE, EDEMA IMPROVED, WEIGHT IMPROVED FROM YESTERDAY. ACTIVE BOWEL TONES CONTINUE, PT WITH INCONT OF STOOL X 2 THIS SHIFT, BROWN, LOOSE. POTTER CATH CONTINUES DRAINING GUERLINE URINE TO GRAVITY. DRESSINGS REMAIN CDI, ALENA DRAIN DRAINING CLEAR SEROUS FLUID.
--- NOTE | 2020-05-04 11:47 | NUR ---
DISCUSSED FAILED SWALLOW EVAL WITH DR SYLVESTER. HAVE SPEECH RE-EVAL TOMORROW AND THEN WILL CONSIDER NUTRITIONAL SUPPLIMENTATION. ALSO NOTIFIED DR SYLVESTER OF NEW SMALL SANGENOUS DRAINAGE ON NATHAN DRESSING AND INCREASED LEIDY OUTPUT AFTER OT TREATMENT. NO INTERVENTION ORDERS RECEIVED. PT IS CURERNTLY UP IN CHAIR, CRYING OUT FOR WATER OR THAT SHE'S HOT/COLD. ORIENTED PT TO SURROUNDINGS AND SITUATION. PT'S STATUS WAS CHANGED TO SURGICAL WITH TELE.
--- NOTE | 2020-05-04 18:38 | NUR ---
SHIFT SUMMARY PT IS ALERT, ORIENTED TO PERSON, FOLLOWS COMMANDS. NATHAN DRESSING INTACT, NO INCREASE TO NEW DRAINAGE ON BANDAGE AFTER THERAPY WORKED WITH PT. DR SYLVESTER AWARE. DRAIN OUTPUT TOTAL 150ML SEROUS FLUID THIS SHIFT. PT DID NOT PASS SPEECH EVAL, STRICT NPO, SPEECH PLANS TO REEVAL TOMORROW. FAMILY VISITED PT AND REPORTS SHE APPEARS MORE COMFORTABLE AND NOT IN PAIN. PT WAS UP IN CHAIR MOST OF THE DAY WITH REPOSITIONING DONE IN CHAIR TO HELP REDUCE SKIN BREAKDOWN. PT WAS STATUS CHANGED TO SURG W/TELE TODAY. MONITOR HAS SHOWN PT TO BE IN SINUS RHYTHM, VITALS HAVE BEEN STABLE.
--- NOTE | 2020-05-04 19:43 | NUR ---
CARE ASSUMED CARE AND REPORT ASSUMED FROM OTONIEL WATERS. PT IN BED, SLEEPING BUT EASILY ARUOSABLE. HARD OF HEARING. CONTINUALLY ASKNIG FOR WATER; CONTINUALLY REMINDING PT SHE CANNOT HAVE ANY WATER SHE IS AN ASPIRATION RISK. NO S/S PAIN AT THIS TIME. PT ORIENTED TO SELF. NEEDS ENCOURAGEMENT TO MOVE EXTREMITIES. SPO2 96% ON 3L NC IN MOUTH. NSR, HR 80S. WOUND VAC SECURED TO ABDOMEN; DAY RN STATES DRAINAGE ON DRESSING IS OLD. LEIDY DRAIN SECURED IN RLQ. D5 INFSUING AT 100 ML/HR. AFEBRILE. WILL CONTINUE TO MONITOR.
--- NOTE | 2020-05-04 20:34 | NUR ---
TRASNFER/HANDOFF REPORT REPORT CALLED TO KIERAN Garcia IN SURGICAL. PT TO BE TRANSFERRED TO [place] [id number] IN BED.
--- NOTE | 2020-05-04 21:01 | NUR ---
ARRIVAL TO UNIT PT ARRIVED FROM ICU, SLID TO BED USING LIFT SHEET. PT DENIES PAIN OR SOB AT THIS TIME. OPENS HER EYES AND WILL NOD YES/NO TO QUESTIONS AND OCCASIONALLY WILL CLOSE HER EYES AND NOT ANSWER. NASAL CANULA IN NOSE. SATS >92%. REPOSITIONED TO LEFT SIDE ON 2 PILLOWS, WILL REPOSITION Q2. PT DENIES FURTHER NEEDS AT THIS TIME. LEIDY DRAIN SEROUS FLUID BULB COMPRESSED. MIDLINE PICCO COMPRESSED.
--- NOTE | 2020-05-05 03:32 | NUR ---
SPOKE TO DR RAY REGARDING NEW SWELLING AND REDNESS NOTED ON R UPPER ARM. PT DENIES PAIN TO TOUCH BUT THE AREA IS WARM TO TOUCH. ORDERS RECIEVED FOR A VENOUS DUPLEX AND TO HOLD FLUIDS THROUGH PICC LINE UNTIL PERFORMED. WILL CONTINUE TO MONITOR PATIENT FOR ANY CHANGES IN HER ARM OR INCREASES IN REDDNESS OR WARMTH.
[2020-05-05 04:04] LABS: BASOPHILS ABSOLUTE AUTO 0.03 K/mm3 (0.00-0.23); BASOPHILS PERCENT AUTO 0 % (0-2); EOSINOPHILS ABSOLUTE AUTO 0.05 K/mm3 (0.00-0.68); EOSINOPHILS PERCENT AUTO 1 % (0-6); Hematocrit 40.7 % (33.0-51.0); Hemoglobin 12.5 g/dL (11.5-16.0); IMMATURE GRAN ABSOLUTE AUTO 0.22 K/mm3 (0.00-0.10); IMMATURE GRAN PERCENT AUTO 2 % (0-1); LYMPHOCYTES ABSOLUTE AUTO 0.81 K/mm3 (0.84-5.20); LYMPHOCYTES PERCENT AUTO 8 % (21-46); MONOCYTES ABSOLUTE AUTO 0.92 K/mm3 (0.16-1.47); MONOCYTES PERCENT AUTO 9 % (4-13); Mean Corpuscular HGB 30.3 pg (26.0-34.0); Mean Corpuscular HGB Conc 30.7 g/dL (31.5-36.5); Mean Corpuscular Volume 99 fL (80-100); Mean Platelet Volume 11.7 fL (9.1-12.4); NEUTROPHILS ABSOLUTE AUTO 8.17 K/mm3 (1.96-9.15); NEUTROPHILS PERCENT AUTO 80 % (41-73); Platelet Count 181 K/mm3 (150-400); RDW Coefficient Variation 15.2 % (11.7-14.2); RDW Standard Deviation 55.1 fL (35.1-46.3); Red Blood Cell Count 4.13 M/mm3 (3.80-5.20)
[2020-05-05 04:23] LABS: Anion Gap 0 mmol/L (6-16); Blood Urea Nitrogen 21 mg/dL (8-24); Bun/Creatinine Ratio 38.1 (12.0-20.0); CO2, Blood 41 mmol/L (21-32); Calcium, Blood 8.6 mg/dL (8.5-10.1); Chloride, Blood 112 mmol/L (98-108); Creatinine, Blood 0.55 mg/dL (0.40-1.00); Glomerular Filtration Rate >60 (60-); Glucose, Blood 152 mg/dL (70-99); Potassium, Blood 3.5 mmol/L (3.5-5.5); Sodium, Blood 153 mmol/L (136-145)
--- NOTE | 2020-05-05 04:35 | NUR ---
SHIFT SUMMARY POD 6 EX LAP WITH PATCH ON PERFED VISCOUS. DIFFICULT TO ASSESS ORIENTATION. PT ONLY RESPONDS TO YES/NO QUESTIONS WITH VERY SLIGHT NODS. REPORTED SOME PAIN "ALL OVER" MEDICATED PER EMAR PT STATED RELIEF. LEIDY DRAIN EMPTIED, SEROUS, YELLOW DRAINAGE. PT REPOSITIONED FREQUENTLY. RESPIRATIONS REMAIN HIGH, SATS REMAIN HIGHER THAN 94%. MIDLINE PICCO HAS YELLOW SHADOWING GREEN LIGHT FLASHING. 3L 02 NASAL CANULA IN MOUTH. NPO PER ORDERS. PLAN FOR FOLLOW UP SWALLOW EVAL SOMETIME TODAY.
--- NOTE | 2020-05-05 11:28 | NUR ---
NOTIFIED DR. CALDERA OF VENOUS DUPLEX REPORT. HE VERBALIZES HE WILL COME SEE PT SHORTLY AND REVIEW CHART/MEDS.
--- NOTE | 2020-05-05 15:34 | NUR ---
Case Conference Note Discussed case with care team including Bedside RN Arlen, and Dr Teague. Pt still experiencing confusion but has improved some. ST following Pt and is not recommending a diet at this time. Discussed plan of care. Called and spoke with Pt's daughter Mayi. Mayi reports initialy having troubles with her phone receiving calls from Palliative Care department but has since been corrected. Provided Mayi update and discussed plan of care. Engaged in therapeutic discussion regarding family appointing a decision maker. Mayi reports family has agreed to allow Mayi to be decision maker. Discussed plan to place Dobhoff to provide nutrition and soft restraints to keep Pt from pulling it out. Pt had NG tube placed previously with Pt pulling it out. Mayi is agreeabe with plan. Provided gentle education on the importance of planning for the future if Pt does not improve. Mayi reports having discussions with family over the last few days regarding this and are prepared to make decisions if needed. Mayi does report Pt has expressed in the past that she would not want any skilled nursing nutrition by tube. Discussed Pt's code status and educated on life sustaining treatments. Mayi reports family is in agreement to change Pt's code status to DNR. Answered questions and offered therapeutic listening. Mayi expresses appreciation of call and reports no other concerns at this time. Called and spoke with Dr Teague. Relayed family's wishes. Changed Pt's code status to DNR per V/O from Dr Teague. Palliative Care will remain available for supportive and therapeutic visits.
--- NOTE | 2020-05-05 16:16 | NUR ---
SHIFT SUMMARY SPEECH THERAPY WORKED WITH PT TODAY AND STILL RECOMMENDED TO KEEP PT NPO DUE TO NOT FOLLOWING COMMANDS COMPLETELY WITH SWALLOWING. PICC LINE TO MONICA BEING DC'D D/T DVT. NEW PICC LINE SUPPOSED TO BE PLACED TODAY. PT CONT TO BE WITHDRAWN AND AWAKENS WITH CARE AND IS COOPERATIVE, BUT IS VERY WEAK AND IS A 2 PERSON MAX ASSIST. PT CAN VERBALIZE YES/NO AND SHORT PHRASES LIKE "I AM COLD" BUT OTHERWISE CANNOT COMPREHEND COMPLEX CONVERSATIONS. NATHAN DRESSING TO MIDLINE ABD REMAINS UNCHANGED FROM THIS MORNING. LEIDY WITH MODERATE CLEAR YELLOW DRAINAGE. POTTER WITH DARK YELLOW URINE. REPOSITIONING + ORAL CARE Q2-3H. PALLIATIVE CARE TALKED TO FAMILY TODAY ABOUT CODE STATUS AND TREATMENT PLAN + FDC PLANS. DR. CALDERA TO CALL DR. SYLVESTER ABOUT NUTRITION OPTIONS. CALL LIGHT WITHIN REACH.
--- NOTE | 2020-05-06 04:41 | NUR ---
SHIFT SUMMARY POD#7. AAOX4/GARBLED SPEECH AT TIMES. DISCOMFORT MINIMIZED WITH 12.5mcg FENTANYL X2 THIS SHIFT. NO NAUSEA/EMESIS. ABD INCISION WITH NATHAN MODERATE AMOUNT OF SS/YELLOW DRAINAGE NOTED ALONG MIDLINE INCISION, NO CHANGE THIS SHIFT. LEIDY SECURE/DRAINING 40cc YELLOW OUT. POTTER WITH LARGE AMOUNT OF CLEAR YELLOW URINE. IVF + ABX PER ORDERS. TELEMETRY NSR 70s TO 80s. STRICT NPO CONTINUES. NURSING STAFF UNABLE TO PLACE DOBHAUFF TUBE R/T PT'S INABILITY TO SWALLOW, MDs AWARE. NEW MEPILEX PLACED PER DAY SHIFT RN ON 05/05, CONTINUE TURNS Q2H + REPOSITIONING FOR COMFORT. NO ACUTE CHANGES OVER NIGHT. PT CURRENTLY RESTING WITH BED ALARM ON + CALL LIGHT IN REACH. PT YELLS OUT FOR ASSISTANCE.
[2020-05-06 07:35] LABS: BASOPHILS ABSOLUTE AUTO 0.02 K/mm3 (0.00-0.23); BASOPHILS PERCENT AUTO 0 % (0-2); EOSINOPHILS ABSOLUTE AUTO 0.07 K/mm3 (0.00-0.68); EOSINOPHILS PERCENT AUTO 1 % (0-6); Hematocrit 33.7 % (33.0-51.0); Hemoglobin 11.1 g/dL (11.5-16.0); IMMATURE GRAN ABSOLUTE AUTO 0.39 K/mm3 (0.00-0.10); IMMATURE GRAN PERCENT AUTO 4 % (0-1); LYMPHOCYTES ABSOLUTE AUTO 0.82 K/mm3 (0.84-5.20); LYMPHOCYTES PERCENT AUTO 9 % (21-46); MONOCYTES ABSOLUTE AUTO 0.61 K/mm3 (0.16-1.47); MONOCYTES PERCENT AUTO 7 % (4-13); Mean Corpuscular HGB 33.9 pg (26.0-34.0); Mean Corpuscular HGB Conc 32.9 g/dL (31.5-36.5); Mean Corpuscular Volume 103 fL (80-100); Mean Platelet Volume 12.9 fL (9.1-12.4); NEUTROPHILS ABSOLUTE AUTO 7.17 K/mm3 (1.96-9.15); NEUTROPHILS PERCENT AUTO 79 % (41-73); NRBC ABSOLUTE 0.03 K/mm3 (0.00-0.02); NRBC Auto 0.3 /100 WBC (0.0-0.2); Platelet Count 199 K/mm3 (150-400); RDW Coefficient Variation 15.9 % (11.7-14.2); RDW Standard Deviation 56.3 fL (35.1-46.3); Red Blood Cell Count 3.27 M/mm3 (3.80-5.20); White Blood Cell Count 9.08 K/mm3 (4.00-11.30)
[2020-05-06 07:48] LABS: Anion Gap 1 mmol/L (6-16); Blood Urea Nitrogen 14 mg/dL (8-24); Bun/Creatinine Ratio 25.2 (12.0-20.0); CO2, Blood 45 mmol/L (21-32); Calcium, Blood 8.3 mg/dL (8.5-10.1); Chloride, Blood 108 mmol/L (98-108); Creatinine, Blood 0.56 mg/dL (0.40-1.00); Glomerular Filtration Rate >60 (60-); Glucose, Blood 134 mg/dL (70-99); Magnesium, Blood 1.8 mg/dL (1.6-2.4); Phosphorus, Blood 1.7 mg/dL (2.5-4.9); Potassium, Blood 3.1 mmol/L (3.5-5.5); Sodium, Blood 154 mmol/L (136-145)
--- NOTE | 2020-05-06 13:24 | NUR ---
NOTIFIED DAUGHTER OF DIET ADVANCEMENT AND TREATMENT PLAN.
--- NOTE | 2020-05-06 15:46 | NUR ---
SHIFT SUMMARY PT PASSED SPEECH THERAPY TODAY AND WAS STARTED ON A PUREED DIET WITH NECTAR THICK LIQUIDS + MED DELIVERY PRECAUTIONS. IVF + ABX PER ORDERS. REPOSITIONING + ORAL CARE Q2-3H. PT STRENGTH SLOWLY IMPROVING PER PT/OT. NATHAN DRESSING TO ABD REMAINS UNCHANGED FROM YESTERDAY AND CLEAR YELLOW FLUID PRESENT IN LEIDY DRAIN. RR STILL IRREGULAR IN THE 30-40S. DR. CALDERA AWARE. POTTER WITH YELLOW URINE PRESENT. PT ABLE TO FOLLOW SIMPLE COMMANDS AND ANSWER SIMPLE QUESTIONS APPROPRIATELY. CALL LIGHT WITHIN REACH.
--- NOTE | 2020-05-06 18:08 | NUR ---
[facility] visit made. RN was assisting pt with sm bites of dinner per new diet orders and providing care to pt while I visited with pt's daughter, Mayi. Mayi expressed appreciation for Pal [facility] RNFabian's visit and conversation yesterday. Pt had a better day today and some improvements seen overall with intake, mentation, therapy sessions and CHF/fluid balance. I answered Anny's questions re: what to expect with d/c planning and rehab stay if pt cont to progress towards that goal. Discussed applying for assist with care at home or alt placement via [facility] and gathered info and contacts for anny to call on that tomorrow to start the process. She expressed relief but also difficulty with making the decision to change Rossy's code status to DNR, but also confidence that it was the correct medical decision for her mom at this time. Booklet, "Hard Choices for [place] People" given to her to generate further questions, thought, goal setting and conversation among pt's family and health care providers. Time spent supporting family and discussiong options if pt either cont to improve or if she were to decline in her health. Family is considering all their options and resources available to support their mom thru this health crisis and the rest of her life, whatever length of time that may be. Will remain available and give report to CM tomorrow on conversations we had re: srinivas planning this oh.
--- NOTE | 2020-05-07 05:53 | NUR ---
SHIFT SUMMARY POD#8. PT DROWSY/AROUSABLE WITH VERBAL STIMULI. PT DENIES PAIN/NAUSEA T/O NIGHT. ABD INCISION WITH NATHAN, LARGE AMOUNT OF SS/YELLOW DRAINAGE NOTED AT SHIFT CHANGE, NATHAN REMOVED AND MEDIPORE DRESSING PLACE. LEIDY SITE SATURATED WITH YELLOW DRAINAGE AT SHIFT CHANGE, DRESSING CHANGED + LEIDY EMPTIED. IVF PER ORDERS. X1 LASIX + POTASSIUM ADMINISTERED THIS SHIFT, AWAITING CURRENT POTASSIUM INFUSION TO DRAW AM LABS. TURN Q2H, HEELS + COCCYX FLOATED ON PILLOWS. TELEMTRY IN PLACE, NSR IN 70s TO 80s T/O NIGHT. LUNG SOUNDS DIMINISHED T/O, RESPIRATIONS ELEVATED IN 20s WITH LABORED BREATHING AT REST. 3L VIA NC. HOB ELEVATED + ORAL CARE PERFORMED Q2-3H + PT AWOKEN Q2H AND ENCOURAGED TO COUGH/DEEP BREATHE. PT VERY DROWSY THIS SHIFT AND UNABLE TO TAKE PO. CURRENTLY RESTING IN BED WITH CALL LIGHT IN REACH.
--- NOTE | 2020-05-07 07:13 | NUR ---
PT SLEEPING WAKES BREIFLY TO VERBAL STIMULI THEN FALLS BACK TO SLEEP PT HAS WET UPPER RESP RHONCHI HOB ELEV BIOX 94-95% ON 3 L NC WHEN PT IS MORE ALERT WILL ENCOURAGE PULM TOILET
[2020-05-07 08:23] LABS: Blood Urea Nitrogen 10 mg/dL (8-24); Bun/Creatinine Ratio 19.5 (12.0-20.0); Calcium, Blood 7.7 mg/dL (8.5-10.1); Chloride, Blood 95 mmol/L (98-108); Creatinine, Blood 0.51 mg/dL (0.40-1.00); Glomerular Filtration Rate >60 (60-); Glucose, Blood 126 mg/dL (70-99); Phosphorus, Blood 2.3 mg/dL (2.5-4.9); Potassium, Blood 3.7 mmol/L (3.5-5.5)
[2020-05-07 08:24] LABS: Anion Gap Unable to Calculate mmol/L (6-16); CO2, Blood >45 mmol/L (21-32); Sodium, Blood 140 mmol/L (136-145)
[2020-05-07 08:26] LABS: Magnesium, Blood 1.4 mg/dL (1.6-2.4)
[2020-05-07 08:45] LABS: PO2 Arterial 60.8 mmHg (80-100); pH Blood Arterial 7.38 (7.35-7.45)
[2020-05-07 08:46] LABS: PCO2 Arterial 81.3 mmHg (35-45)
--- NOTE | 2020-05-07 09:02 | NUR ---
dr lucas by viewed abg results ordered pt cxr diuretic and to cont to monitor for resp s/s
--- NOTE | 2020-05-07 09:19 | NUR ---
PT GIVEN ORAL COREG CRUSHED WITH SMALL AMT OF APPLE SAUCE HOB ELEV 90 DEGREE PT STAYED AWAKE ONLY LONG ENOUGH TO TAKE MED WILL KEEP ELEV FOR NEXT 30 MIN ALSO AWAITING US TO R/O DVT
--- NOTE | 2020-05-07 09:23 | NUR ---
US AT BEDSIDE
--- NOTE | 2020-05-07 15:12 | NUR ---
PT PLACED ON BIPAP PRIOR TO PLACEMENT BIOX 90-91% PT STILL LETHARGIC
--- NOTE | 2020-05-07 17:16 | NUR ---
pt stirs on occ otherwise lethargic on bipap still biox 86-88%
--- NOTE | 2020-05-07 17:39 | NUR ---
pt's daughter at bedside discussed her dec loc today and why we placed her on bipap and her labs also asked her if she is dni along with dnr discussed medications and tx
--- NOTE | 2020-05-07 20:16 | NUR ---
SPOKE TO NADIR IN RT REGARDING PATIENTS BIPAP ALARM FREQUETLY ALARMING AND PT SHOWING INCREASED RESP RATE. SPOKE WITH HOSPITALIST WITH RT RECCOMENDATION ABOUT THE PATIENTS RESPIRATORY STATUS, INCLUDING RR IN THE 40'S SP02 OF 86% AND HER 15L BLEED IN TO BIPAP. ORDERS RECIEVED TO TRANSFER PATIENT TO PCU AT THIS TIME. PATIENT IS CURRENTLY RESTING IN BED WITH BIPAP ON, SHE ANSWERS QUESTIONS APPROPRIATLY AND KNOWS WHERE SHE IS. FOLLOWS DIRECTIONS. WILL CONTINUE TO MONITOR PATIENT FOR CHANGES WHILE AWAITIG TRANSFER.
--- NOTE | 2020-05-07 20:59 | NUR ---
TRANSFERRED TO [facility], [facility] W/ PT.
--- NOTE | 2020-05-07 20:59 | NUR ---
PT TRANSFERED TO PCU ROOM 4 VIA HER BED. BELONGINGS SENT WITH PATIENT, RESPIRATORY CARE ASSISTED WITH TRANSFER OF PT. SPOKE TO SON ON PHONE AT APPROX 2100, CALLED USING NUMBER IN PATIENTS CHART. INSTRUCTED FAMILY TO CALL IF ANY FURTHER QUESTIONS.
--- NOTE | 2020-05-07 21:09 | NUR ---
PT ARRIVAL PT ARRIVED TO PCU WITH 2RNS AND RT. PT ARRIVED ON V60 BIPAP. BIPAP REMOVED FOR LESS THAN 1 MIN FOR PO ORAL MEDICATION PER DOCTOR ORDER. OT IV LASIX DOSE GIVEN UPON ARRIVAL. OPTTER CATH EMPTIED TO DOCUMENT AMOUNT OF OUTPUT FROM LASIX. APPROX 200ML URINE OUTPUT NOTED WITHIN 10 MIN OF LASIX ADMIN. PT RESTING COMFORTABLY. DOES STARTLE EASILY WHEN AWAKEN. BIPAP IN PLACE SETTING 17/8 FiO2 80% PT SATS 88-90% RR AVG 30'S.
[2020-05-08 04:15] LABS: BASOPHILS ABSOLUTE AUTO 0.02 K/mm3 (0.00-0.23); BASOPHILS PERCENT AUTO 0 % (0-2); EOSINOPHILS ABSOLUTE AUTO 0.06 K/mm3 (0.00-0.68); EOSINOPHILS PERCENT AUTO 0 % (0-6); Hematocrit 37.7 % (33.0-51.0); Hemoglobin 12.2 g/dL (11.5-16.0); IMMATURE GRAN ABSOLUTE AUTO 0.27 K/mm3 (0.00-0.10); IMMATURE GRAN PERCENT AUTO 2 % (0-1); LYMPHOCYTES ABSOLUTE AUTO 0.83 K/mm3 (0.84-5.20); LYMPHOCYTES PERCENT AUTO 6 % (21-46); MONOCYTES ABSOLUTE AUTO 0.43 K/mm3 (0.16-1.47); MONOCYTES PERCENT AUTO 3 % (4-13); Mean Corpuscular HGB 32.1 pg (26.0-34.0); Mean Corpuscular HGB Conc 32.4 g/dL (31.5-36.5); Mean Corpuscular Volume 99 fL (80-100); Mean Platelet Volume 12.5 fL (9.1-12.4); NEUTROPHILS ABSOLUTE AUTO 13.32 K/mm3 (1.96-9.15); NEUTROPHILS PERCENT AUTO 89 % (41-73); Platelet Count 249 K/mm3 (150-400); RDW Coefficient Variation 14.9 % (11.7-14.2); RDW Standard Deviation 52.2 fL (35.1-46.3); White Blood Cell Count 14.93 K/mm3 (4.00-11.30)
[2020-05-08 04:32] LABS: Albumin, Blood 1.8 g/dL (3.4-5.0); Anion Gap 1 mmol/L (6-16); Blood Urea Nitrogen 9 mg/dL (8-24); Bun/Creatinine Ratio 17.4 (12.0-20.0); CO2, Blood 43 mmol/L (21-32); Chloride, Blood 95 mmol/L (98-108); Creatinine, Blood 0.52 mg/dL (0.40-1.00); Glomerular Filtration Rate >60 (60-); Glucose, Blood 95 mg/dL (70-99); Phosphorus, Blood 2.5 mg/dL (2.5-4.9); Potassium, Blood 3.9 mmol/L (3.5-5.5); Sodium, Blood 139 mmol/L (136-145)
--- NOTE | 2020-05-08 05:47 | NUR ---
SHIFT SUMMARY PT TRANSPORTED TO UNIT FROM SURGICAL FLOOR D/T INCREASE IN O2 NEEDS. PT CURRENLTY ON BIPAP AT 80% FIO2. OXYGEN SATURATION MAINTAIND ABOVE 90% ON 80% FIO2. PT UNABLE TO TOLERATE A DECREASE IN FIO2 AT THIS TIME. PT STATES TO HAVE PAIN, MEDICATION GIVEN PER EMAR. PT SLEPT T/O NIGHT. WILL AWAKEN TO VERBAL STIMULI. PT SPEAKS IN ONE WORD ANSWERS. PT HAS FLAT AFFECT. BP STABLE. HR STABLE. WILL CONTINUE TO MONITOR UNTIL REPORT GIVEN TO DAYSHIFT RN.
--- NOTE | 2020-05-08 08:30 | NUR ---
PT WITH INCREASED MOTTLING OF EXTREMETIES X4, PT AWAKENS TO VERBAL STIMULI BUT DOES NOT COMMUNICATE. FIO2 SET TO 90%, UNABLE TO GAIN AN ACCURATE SPO2 READING DESPITE ATTEMPTS BY THIS RN, DATA VISUALIZATION DEVELOPER AND RT WITH MUTIPLE SOURCES TO OBTAIN SPO2 READING. RR 40 PT IS OVER BREATHING THE BIPAP MACHINE. CALL IS PLACED TO DR CUNHA'S ANSWERING SERVICE FOR FURTHER SUGGESTIONS
--- NOTE | 2020-05-08 09:30 | NUR ---
Supportive visit this AM. Pt resting in bed and wearing BIPAP. Pt able to answer simple yes and no questions. Pt denies pain at this time. When asked if she is comfortable Pt states "no" but unable to provide any details regarding her comfort. Mottling noted on all extremities with upper extremities cool to the touch. Spoke with bone crusher Amy and Bedside EVELIN Sen. Discussed case and concerns. Plan is for family meeting at [address] Levine. Palliative Care will plan to be present during meeting.
--- NOTE | 2020-05-08 13:57 | NUR ---
Spoke with social professionals Vania, Bedside RN Francy and discussed case. Dr Levine and family had conversation regarding goals of care. Pt and family has elected comfort care. Spoke with Dr Levine and he has ordered comfort medications. Pt resting in bed. Pt reports generalized pain and is unable to provide pain rating. FLACC score of 3/10. Daughter Mayi is at bedside and reports Pt receiving pain medications just prior to this RN's arrival. Offered therapeutic listening and anwered questions. Mayi is requesting Pt's sons to be able to visit. Discussed the ability to have 4 visitors at a time for comfort care Pt's. Continued therapeutic listening. No other concerns reported at this time. Palliative Care will remain available for symptom management and supportive visits.
--- NOTE | 2020-05-08 15:15 | NUR ---
pt had one medium sized formed hard light brown BM. upon wiping, pt has some bleeding from rectum, visualized small hemorrhoid. provided pt and daughter with wet baby wipes for future. pull-up attends on
--- NOTE | 2020-05-08 17:39 | NUR ---
SHIFT NOTE PT WAS CHANGED TO COMFORT CARE AFTER DR CUNHA AND PT'S DAUGHTER HAD A MEETING ABOUT PT'S PROGNOSIS. PT HAS HAD A GRADUAL DECLINE IN STATUS SINCE HER ADMISSION AND A NOTED DECLINE DURING THIS SHIFT WHICH PROMPTED THE DISCUSSION TO TO CHANGE TO COMFORT CARE. PT WAS REMOVED FROM BIPAP AND PLACED ON NASAL CANNULA WHICH SHE APPEARS TO BE TOLERATING WELL. MUTIPLE FAMILY HAVE CAME TO THE BEDSIDE TO BE WITH PT. PT'S PAIN HAS BEEN WELL CONTROLLED WITH ROXINOL PO. DURING EVENING MEDICATION PASS DAUGHTER STS THAT PT APPEARS COMFORTABLE AND ASKS THAT THEY BE LEFT WITH PT, HER WISHES ARE HONORED AND PROTONIX IS HELD UNTIL PT REQUIRES PAIN MEDICATION.
--- NOTE | 2020-05-08 20:51 | NUR ---
PT FAMILY REQUEST LIMIT VISITS. WILL CALL FOR HELP WHEN NEEDED. NO FAMILY WILL BE SPENDING THE NIGHT. WILL RESUME HOURLY ROUNDING WHEN ALL FAMILY MEMBERS HAVE LEFT FOR NIGHT. DAUGHTER REINA HACKETT IN ROOM, WILL CALL IF ANY CHANGES.
--- NOTE | 2020-05-09 05:42 | NUR ---
SHIFT SUMMARY PT SLEEPING COMFORTABLY. PT DID NOT REQUIRE ANY MEDS FOR PAIN OR DISCOMFORT. PT SLEPT WELL, AND DID NOT WAKE T/O NIGHT. SATS >90% ON OXIMIZER. PT CHECKED FREQUENTLY FOR DISCOMFORT. NO SIGNS OF PAIN NOTED.
--- NOTE | 2020-05-09 09:02 | NUR ---
Comfort Care Visit Pt resting in bed and is requesting food. Family at bedside. ENVIRONMENTAL COMPLIANCE OFFICER will bring Pt's breakfast. Pt appears comfortable with no S/S of distress at this time. Spoke with daughter Mayi outside of Pt's room. Discussed the poetential of considering hospice if Pt does not become imminent. Offered emotional support as Mayi is intermitently tearful. Mayi states that she is not completing opposed to this idea. Mayi also reports if Pt passes here at the hospital then [facility] is the home choice. Continued therapeutic listening. No other concerns reported. Palliative Care will reamain available for symptom management and therapeutic visits.
--- NOTE | 2020-05-09 09:50 | NUR ---
FAMILY AT BEDSIDE AND REQUESTING PRIVACY AT THIS TIME
--- NOTE | 2020-05-09 12:37 | NUR ---
PT AND FAMILY DECLINE NEEDS. PT DECLINES REPOSITIONING, PAIN, ANXIETY OR SOB. FAMILY ASSISTING PT TO EAT.
--- NOTE | 2020-05-09 17:56 | NUR ---
SUMMARY PT CONTINUES TO COMMUNICATE WITH FAMILY AND ANSWERS YES/NO QUESTIONS FOR STAFF. PT HAS DECLINED REPOSITIOINING MAJORITY OF DAY, BUT FAMILY IN COMMUNICATION WITH PATIENT AND FAMILY GETS STAFF FOR NEEDS. MEDICATED WITH [place] PER REQUESTED BY FAMILY AND VERIFIED WITH PATIENT. PT'S RESPIRATIONS MORE LABORED THIS EVENING. PT CONTINUES TO REQUEST TO KEEP OXYGEN ON FOR COMFORT. ATTENDS CHANGED ONCE FOR BOWEL MOVEMENT. OTHERWISE, POTTER DRAINING SMALL AMOUNT OF LIQUID THROUGHOUT DAY. PT AND FAMILY REQUESTING PRIVACY MAJORITY OF DAY. DENY NEED FOR FURTHER SUPPORT.
--- NOTE | 2020-05-10 05:44 | NUR ---
PT RESTED THROUGH NIGHT FAMILY WAS AT BEDSIDE UNTIL ABOUT 1999. PT RECEIVED PAIN MEDS X2 LABORED BREATHING - 9LNC NO TELE 1 BM POTTER - 400ML Q2 TURNS WILL CONTINUE TO GIVE SUPPORTIVE CARE CALL LIGHT WITHIN REACH, BED IN LOWEST POSITION.
--- NOTE | 2020-05-10 11:52 | NUR ---
Spiritual care visit conducted. Patient is lying in bed and several family members are present. Family explain the medical issues that patient has and discuss the concerns around having to make medical dicisions for her. They talk about what they know about their mother, the doctor's advice and their family dynamics. I listen empathically, encourage family in the care and concern for their mother and the careful decision making process they have gone through and provide prayer. The family respond well and shows signs of increased peace over their decisions. I will continue to remain available to patient and family.
--- NOTE | 2020-05-10 15:54 | NUR ---
Pt repirations slightly labored and some increased secretions. Review of pt with nursing and family and medicaiton requested. pt looks to be starting transition.
--- NOTE | 2020-05-10 16:25 | NUR ---
UPDATE PT NOT ALERT OR RESPONSIVE THIS SHIFT. PT ON 9L OXYMIZER REQUESTED BY FAMILY. COMFORT NEEDS MET. PT MEDICATED NEEDED. SCOPOLAMINE PATCH PLACED DUE TO INCREASED SECRETIONS. PT REPOSITIONED Q2H. POTTER PATENT AND DRAINING. FAMILY AT BEDSIDE. REPORT GIVEN TO MEDICAL FLOOR RN. PT TO BE TAKEN UPSTAIRS.
--- NOTE | 2020-05-10 16:59 | NUR ---
PATIENT UNRESPONSIVE. ON 10 LPM HIGH FLOW OXYGEN. LIPS WHITE. FEET COOL TO TOUCH AND MOTTLED WITH TOES PURPLE. KNEES MOTTLED. POTTER DRAINING CLEAR YELLOW URINE. SCOPALOMINE PATCH UNDER RT EAR. EDEMA BUE. PICC LINE LEFT UPPER ARM. WCTM
--- NOTE | 2020-05-10 22:20 | NUR ---
COMFORT CARE *LATE ENTRY* NONVERBAL, NONRESPONSIVE, ON CC. HAS LABOURED BREATHING c PERIODS OF APNEA. FAMILY @BEDSIDE ASKED IF PT COULD RECIEVE PAIN MEDICATION @1921. MEDICATED c 10MG ROXANOL AT BEGINNING OF SHIFT. FAMILY REFUSED PT TO BE TURNED @THIS TIME. AROUND 2099 FAMILY ASKED FOR ROXANOL & ATIVAN FOR COMFORT, MEDICATED PT, REPOSITIONED, PERFORMED CATH CARE. TM.
--- NOTE | 2020-05-10 23:35 | NUR ---
COMFORT CARE CONTACT CENTER TEAM LEAD CALLED ME INTO RM @2320, NO BREATHING NOTICED & COULD NOT HEAR HB. CALLED CHARGE NURSE INTO RM TO VERIFY . FAMILY @BEDSIDE. OFFERED PASTORAL CARE.
== END 2020-05-10 23:20 | DRG 326 ==
LOC: ER 07:24 → ICUW 10:26 → SURS 10:26 → ICUW 14:58 → SURS 05-04 21:01 → PCU 05-07 20:44 → MEDS 05-10 16:42
PROVIDERS: Emergency Medicine; Family Medicine; Internal Medicine; Internal Medicine Critical Care Medicine; Internal Medicine Gastroenterology; ADMIT Surgery
PROC: 3E033XZ Introduction of Vasopressor into Peripheral Vein, Percutaneous Approach (ICD-10-PCS; 2020-04-29)
PROC: 02HV33Z Insertion of Infusion Device into Superior Vena Cava, Percutaneous Approach (ICD-10-PCS; 2020-04-29)
PROC: 0DU607Z Supplement Stomach with Autologous Tissue Substitute, Open Approach (ICD-10-PCS; principal; 2020-04-29 11:30)
DX: K26.5 Chronic or unspecified duodenal ulcer with perforation (principal); G92 Toxic encephalopathy; I21.A1 Myocardial infarction type 2; I50.31 Acute diastolic (congestive) heart failure; K65.9 Peritonitis, unspecified; E87.2 Acidosis; N17.9 Acute kidney failure, unspecified; I42.8 Other cardiomyopathies; E87.0 Hyperosmolality and hypernatremia; J98.11 Atelectasis; Z51.5 Encounter for palliative care; K66.8 Other specified disorders of peritoneum; J44.9 Chronic obstructive pulmonary disease, unspecified; E78.5 Hyperlipidemia, unspecified; Z20.828 Contact with and (suspected) exposure to other viral communicable diseases; F51.04 Psychophysiologic insomnia; F17.210 Nicotine dependence, cigarettes, uncomplicated; Q24.8 Other specified congenital malformations of heart; I95.89 Other hypotension; E87.6 Hypokalemia; E83.39 Other disorders of phosphorus metabolism; I11.0 Hypertensive heart disease with heart failure
CPT/HCPCS: 36415; 36569; 36600; 71045; 71046; 74176; 74240; 80048; 80053; 80069; 81001; 82330; 82533; 82803; 82947; 83605; 83690; 83735; 83880; 84100; 85025; 87040; 87086; 87106; 92526; 92610; 93005; 93010; 93306; 93970; 93971; 94660; 94762; 96361; 96365; 96375; 97110; 97161; 97166; 99285-25; C1751; C1894; C9113; J0330; J1170; J1450; J1644; J1940; J2060; J2270; J2370; J2405; J2543; J2710; J3010; J3475; J3480; J7030; J7050; J7060; J7070; J7120; P9612; U0002